=== PATIENT | female | born 1995 | race African-American/Black ===

== ENCOUNTER 2016-07-25 23:39 | Emergency (ER) | payer SELFPAY ==
[2016-07-25 23:23] LABS: BASOPHILS 0.1 %; BASOPHILS ABSOLUTE 0.01 10/3/uL (0.0-0.16); EOSINOPHILS 0 %; HEMOGLOBIN 12.4 g/dL (12.0-16.0); IMMATURE GRANULOCYTES 0.3 %; IMMATURE GRANULOCYTES ABSOLUTE 0.03 10/3/uL (0.0-0.11); LYMPHOCYTES 19.8 %; LYMPHOCYTES ABSOLUTE 2.35 10/3/uL (0.67-4.30); MEAN CORPUSCULAR HEMOGLOB 28.1 pg (26.0-34.0); MEAN PLATELET VOLUME 9.9 fL (9.2-13.0); MONOCYTES 5.9 %; NEUTROPHILS 73.9 %; NEUTROPHILS ABSOLUTE 8.79 10/3/uL (2.02-8.40); RBC DISTRIBUTION WIDTH 15.3 % (12.0-16.0); RED CELL COUNT 4.41 10/6/uL (4.0-5.6)
[2016-07-25 23:28] LABS: ASCORBIC ACID (UR NOT ORDER) NEG (NEG); BILIRUBIN, URINE SMALL (NEG); ER URINALYSIS TAT 0 Hrs 12 Mins; KETONE, URINE 80 MG/DL (NEG); NITRITE (URINE) NEG (NEG); WBC (NOT ORDERED) (RFLEX) 6 (0-5)
[2016-07-25 23:29] LABS: ER CBC TAT 0 Hrs 13 Mins; HEMATOCRIT 35.1 % (36.0-48.0); MANUAL DIFF NO %; MEAN CORPUS HGB CONC 35.3 g/dL (32.0-36.0); MEAN CORPUSCULAR VOLUME 79.6 fL (80-100); PLATELET COUNT 306 10/3/uL (150-400); WHITE BLOOD CELLS 11.9 10/3/uL (4.5-10.5)
[2016-07-25 23:30] LABS: LEUKOCYTE ESTERASE(NOT OR TRACE (NEG)
[2016-07-25 23:35] LABS: ALKALINE PHOSPHATASE 69 U/L (45-117); CHLORIDE, SERUM 110 MMOL/L (96-112); CO2 (CARBON DIOXIDE) 20 MMOL/L (24-34); CREATININE 1.16 MG/DL (0.55-1.02); GFR AFRICAN AMERICAN 78 ML/MIN (>=60); GFR NON AFRICAN AMERICAN 67 ML/MIN (>=60); POTASSIUM, SERUM 3.4 MMOL/L (3.5-5.3); SGOT(AST) 14 U/L (5-40); SGPT(ALT) 16 U/L (5-65); SODIUM, SERUM 142 MMOL/L (135-148)
[2016-07-25 23:36] LABS: A/G RATIO 1.1 (0.7-1.9); ALBUMIN 4.8 G/DL (3.5-5.0); BUN (BLOOD UREA NITROGEN) 14 MG/DL (6-23); CALCIUM, SERUM 10.2 MG/DL (8.5-10.4); GLOBULIN 4.2 G/DL (2.5-4.1); GLUCOSE, SERUM 119 MG/DL (60-99)
== END 2016-07-26 01:05 | disposition home or self-care (01) ==
LOC: ER 23:39
PROVIDERS: Emergency Medicine
DX: N28.9 Disorder of kidney and ureter, unspecified (principal); N94.6 Dysmenorrhea, unspecified
CPT/HCPCS: 80053; 81001; 83690; 84703; 85025; 96374; 96375; 99284; C9113; J1885; J2405; J2800

== ENCOUNTER 2016-08-19 16:47 | Emergency (ER) | payer SELFPAY | END 2016-08-19 17:04 | disposition home or self-care (01) | LOC: ER 16:47 | DX: N94.6 Dysmenorrhea, unspecified (principal) | CPT/HCPCS: 96372; 99284; J1885; J2550 ==